=== PATIENT | male | born 1965 | race Two or more races ===

== ENCOUNTER 2020-12-13 18:22 | Emergency (ER) | payer BC, SELFPAY ==
[2020-12-13] VITALS (14 sets, daily range): BP systolic 118–122; BP diastolic 72–89; PULSE 63–84; RESP 12–22; TEMP 36.7–37.1; O2SAT 94–98
--- NOTE | 2020-12-13 19:34 | PC.NURSE ---
Pt refused IV pepcid. Educated on importance of blocking histamine receptors and preventing further reaction. Still refused. MD aware of refusal.
--- NOTE | 2020-12-13 19:55 | ED.ALLEREA ---
HPI - Allergic Reaction General Chief complaint: Allergic Reaction Stated complaint: allergic rx Source: patient, family and EMS Mode of arrival: EMS Limitations: no limitations History of Present Illness HPI narrative: 54-year-old male Patient keeps bees Has been stung before and is not allergic as far as he knows Today one of the hives was accidentally overturned and the bees became somewhat understandably agitated and he was stung numerous times mostly on the arms and legs He retreated indoors and was noted to be flushed, diaphoretic, and dizzy He did not have pruritus, wheezing, stridor, dyspnea However when EMS was summoned they did notice that his initial systolic blood pressure was in the 80s He was given IV fluids, Benadryl, IV steroids, and epi in the field and reports that he feels better now although he still flushed and tremulous Related Data Allergies Allergy/AdvReac Type Severity Reaction Status Date / Time bee venom protein (honey bee) Allergy Anaphylaxis Verified 12/13/20 19:24 [bees] Review of Systems Review of Systems: All systems reviewed & are unremarkable except as noted in HPI and below Constitutional: Constitutional: Reports no additional constitutional complaints, Denies chills, Denies fever(s), Denies headache(s) and Reports weakness Eyes: Eyes: Reports no additional eye complaints and Denies change in vision ENT: Reports dizziness, Denies headache(s) and Denies sore throat Cardiovascular: Cardiovascular: Denies chest pain and Denies dyspnea Respiratory: Respiratory: Denies cough, Denies dyspnea and Denies wheezing Gastrointestinal: Gastrointestinal: Denies abdominal pain, Denies diarrhea, Reports nausea and Denies vomiting Genitourinary: Genitourinary: Denies dysuria and Denies urinary frequency Musculoskeletal: Musculoskeletal: Denies deformity, Denies arthralgias, Denies joint swelling and Denies numbness Integumentary/Breasts: Skin/Breast: Denies pruritus, Reports erythema, Denies rash and Denies wounds Neurologic: Denies headache(s), Denies focal weakness and Denies numbness Psychiatric: Psychiatric: Reports no additional psychiatric complaints Endocrine: Endocrine: Reports no additional endocrine complaints Hematologic/Lymphatic: Hematologic/Lymphatic: Reports no additional hematologic/lymphatic complaints Allergic/Immunologic: Allergic/Immunologic: Reports no additional allergic/immunologic complaints [facility] Surgical History Surgical History (Updated 05/17/19 @ 21:22 by Anita Cooper PA-C) History of appendectomy Social History Social History (Updated 05/17/19 @ 21:22 by Anita Cooper PA-C) Smoking status: Current some day smoker Gender identity (if verbalized by the patient): Female Exam Const: General: cooperative, no acute distress and alert; No diaphoretic Orientation/consciousness: patient oriented x3 (alert) HENMT: Head: normal to inspection, normocephalic and atraumatic Ears: external ears normal General nose exam: no epistaxis Mouth: Yes Normal oral and palatal mucosa present and Yes moist mucous membranes Throat: uvula midline Other: No swelling of the oropharynx or mouth, no stridor, no hoarseness Eyes: Conjunctivae: conjunctivae normal EOM: EOMs intact bilaterally Neck: Neck: normal visual inspection, supple and no JVD Resp: Effort & Inspection: normal respiratory effort and not labored Auscultation: clear to auscultation bilaterally, no rales, no rhonchi, no wheezes and other (BS =) Cardio: Rate: regular rate Rhythm: regular rhythm Heart sounds: no murmurs Skin: General skin exam: no rashes or lesions noted Other: Diffusely flushed but no true urticaria plaques Neuro: General: patient oriented x3 (alert) and moves all extremities Speech: normal speech Extrem: General: normal to inspection and no pedal edema Psych: Affect: normal affect Course Course Emergency Course: He was observed and continued to improve an
--- NOTE | 2020-12-13 20:25 | PC.NURSE ---
Pt working with registration. Now has insurance card. OK to DC after done with registration
== END 2020-12-13 20:40 | disposition home or self-care (01) ==
PROVIDERS: Emergency Provider Emergency Medicine
DX: T63.441A Toxic effect of venom of bees, accidental (unintentional), initial encounter (principal); F17.210 Nicotine dependence, cigarettes, uncomplicated
CPT/HCPCS: 99283